=== PATIENT | male | born 1970 | race Caucasian/White ===

== ENCOUNTER 2023-12-12 20:12 | Emergency (ER) | payer BC ==
[~2023-12-12] VITALS: Ht 167.6 cm; Wt 79.4 kg
[2023-12-12 20:57] VITALS: BP_SYST 145; PULSE 76; RESP 16; TEMP 98.8; O2SAT 100
[2023-12-12] MEDS ORDERED: IBUP-1969 PO (23:46)
[2023-12-12] MEDS ORDERED: ACET-2634 PO (23:46)
[2023-12-13 00:33] VITALS: BP_SYST 138; PULSE 75; RESP 18; TEMP 98.6; O2SAT 98
== END 2023-12-13 00:33 | disposition home or self-care (01) ==
LOC: SED 20:12
DX: S52.135A Nondisplaced fracture of neck of left radius, initial encounter for closed fracture (principal); I10 Essential (primary) hypertension; Z88.2 Allergy status to sulfonamides; Z79.899 Other long term (current) drug therapy; W01.0XXA Fall on same level from slipping, tripping and stumbling without subsequent striking against object, initial encounter; Y93.89 Activity, other specified; Y92.89 Other specified places as the place of occurrence of the external cause; Y99.8 Other external cause status
CPT/HCPCS: 73090; 99283

== ENCOUNTER 2024-07-17 14:13 | Emergency (ER) | payer BC ==
[~2024-07-17] VITALS: Ht 167.6 cm; Wt 83.9 kg
[2024-07-17 14:13] VITALS: BP_SYST 141; PULSE 81; RESP 16; TEMP 98.7; O2SAT 98
[~2024-07-17 14:13] MED LIST: ACET-2634 PO; IBUP-1969 PO
[2024-07-17 15:01] LABS: BASOPHILS % (AUTO) 0.4 % (0.0-2.0); EOSINOPHILS % (AUTO) 0.7 % (0.0-4.0); HEMATOCRIT 43.9 % (36-54); HEMOGLOBIN 15.4 g/dL (14.0-18.0); LYMPHOCYTES # (AUTO) 1.2 K/uL (1.0-5.5); LYMPHOCYTES % (AUTO) 21.3 % (20.5-51.5); MEAN CORPUSCULAR HEMOGLOBIN 30 pg (27-31); MEAN CORPUSCULAR HGB CONC 35 % (32-36); MEAN CORPUSCULAR VOLUME 86 fL (79.0-98.0); MONOCYTES # (AUTO) 0.4 K/uL (0.0-1.0); MONOCYTES % (AUTO) 7.7 % (1.7-9.3); NEUTROPHILS # (AUTO) 3.9 K/uL (1.8-7.7); NEUTROPHILS % (AUTO) 69.9 % (40.0-70.0); PLATELET COUNT (AUTO) 198 K/uL (130-430); RED CELL DISTRIBUTION WIDTH 13.6 % (9.0-15.0); WHITE BLOOD COUNT (AUTO) 5.6 K/uL (4.8-10.8)
[2024-07-17 15:06] LABS: BARBITURATE, URINE NEGATIVE (NEG <=200); BENZODIAZEPINE, URINE NEGATIVE (NEG <=150); CANNABINOID, URINE NEGATIVE (NEG <=50); COCAINE, URINE NEGATIVE (NEG <=150); OPIATE, URINE NEGATIVE (NEG <=100); PHENCYCLIDINE SCREEN,URINE NEGATIVE (NEG <=25); URINE AMPHETAMINE NEGATIVE (NEG <=500); URINE METHADONE NEGATIVE (NEG <=200)
[2024-07-17 15:07] LABS: METHAMPHETAMINES SCREEN,URINE NEGATIVE (NEG <=500); UR TRICYCLIC ANTIDEPRESSANTS NEGATIVE (NEG <=300); URINE OXYCODONE SCREEN NEGATIVE (NEG <=100)
[2024-07-17 15:18] LABS: INR 0.9 (0.80-1.20); PROTHROMBIN TIME 9.9 SECS (9.5-12.5)
[2024-07-17 15:27] LABS: ALBUMIN 3.9 g/dL (3.4-4.8); BILIRUBIN,DIRECT 0.2 mg/dL (0.0-0.3); CREATININE 0.87 mg/dL (0.55-1.30); FREE T4 (FREE THYROXINE) 1.1 ng/dL (0.6-1.6); POTASSIUM 3.5 mmol/L (3.5-5.1); THYROID STIMULATING HORMONE 1.23 uIu/mL (0.34-4.82); TOTAL BILIRUBIN 0.6 mg/dL (0.0-1.0); TOTAL PROTEIN, SERUM 6.8 g/dL (6.4-8.3)
[2024-07-17 15:28] LABS: CREATINE KINASE, TOTAL 86 U/L (39-308)
[2024-07-17 16:52] VITALS: TEMP 98.7
[2024-07-17 17:39] VITALS: BP_SYST 148; PULSE 74; RESP 20; O2SAT 97
== END 2024-07-17 17:37 | disposition home or self-care (01) ==
LOC: SED 14:13
DX: R00.2 Palpitations (principal); R07.89 Other chest pain; Z88.2 Allergy status to sulfonamides; I10 Essential (primary) hypertension; Z79.899 Other long term (current) drug therapy
CPT/HCPCS: 36415; 71045; 80048; 80076; 80307; 82550; 83880; 84439; 84443; 84484; 85025; 85610; 85730; 93005; 99285

== ENCOUNTER 2024-07-19 17:30 | Emergency (ER) | payer BC ==
[~2024-07-19] VITALS: Ht 167.6 cm; Wt 83.9 kg
[2024-07-19 17:35] VITALS: BP_SYST 145; PULSE 79; RESP 18; TEMP 98.6; O2SAT 98
[2024-07-19 19:17] LABS: BASOPHILS % (AUTO) 0.4 % (0.0-2.0); EOSINOPHILS # (AUTO) 0.1 K/uL (0.0-0.4); EOSINOPHILS % (AUTO) 0.9 % (0.0-4.0); HEMATOCRIT 45.5 % (36-54); HEMOGLOBIN 15.6 g/dL (14.0-18.0); LYMPHOCYTES # (AUTO) 1.6 K/uL (1.0-5.5); LYMPHOCYTES % (AUTO) 23.6 % (20.5-51.5); MEAN CORPUSCULAR HEMOGLOBIN 30 pg (27-31); MEAN CORPUSCULAR HGB CONC 34 % (32-36); MEAN CORPUSCULAR VOLUME 86 fL (79.0-98.0); MONOCYTES # (AUTO) 0.5 K/uL (0.0-1.0); MONOCYTES % (AUTO) 8.2 % (1.7-9.3); NEUTROPHILS # (AUTO) 4.5 K/uL (1.8-7.7); NEUTROPHILS % (AUTO) 66.9 % (40.0-70.0); PLATELET COUNT (AUTO) 205 K/uL (130-430); RED BLOOD CELL COUNT(AUTO) 5.27 MIL/uL (4.2-6.2); WHITE BLOOD COUNT (AUTO) 6.7 K/uL (4.8-10.8)
[2024-07-19 19:32] LABS: ALBUMIN 3.7 g/dL (3.4-4.8); CREATININE 0.92 mg/dL (0.55-1.30); POTASSIUM 3.6 mmol/L (3.5-5.1); TOTAL BILIRUBIN 0.5 mg/dL (0.0-1.0); TOTAL PROTEIN, SERUM 6.8 g/dL (6.4-8.3)
[2024-07-19 19:34] LABS: BILIRUBIN,DIRECT 0.1 mg/dL (0.0-0.3)
[2024-07-19 21:55] VITALS: BP_SYST 133; PULSE 81; RESP 20; TEMP 98; O2SAT 98
== END 2024-07-19 21:55 | disposition home or self-care (01) ==
LOC: SED 17:30
DX: R20.2 Paresthesia of skin (principal); I10 Essential (primary) hypertension; Z88.2 Allergy status to sulfonamides
CPT/HCPCS: 36415; 70450-TC; 80048; 80076; 84484; 85025; 99284